=== PATIENT | female | born 1980 | race Caucasian/White ===

== ENCOUNTER 2016-09-30 14:27 | Emergency (ER) | payer OTHER ==
--- NOTE | 2016-09-30 14:54 | ED NURSING NOTES ---
Clinical Report - Nurses [facility] [address] [place] [address] 09/30/2016 14:28 Patient: ANNETTA PLASENCIA TRIAGE Triage time 14:42. Acuity: LEVEL 4. Chief Complaint: TOOTHACHE. Alert. No acute distress. DANIELLE COMA SCORE: Danielle Coma Scale: 15- eyes open spontaneously (4); best verbal response- oriented x 4 (5); best motor response- obeys commands (6). --14:49 Jerica Ibarra R.N. 14:41 09/30/16. BP: 148/96. HR: 113. RR: 18. O2 saturation: 100%. Temp: 98.2 F (oral). Pain level now: 06/30. --14:49 Jerica Ibarra R.N. Weight: 88.4 kg stated. Height/Length: 64 inches Per Patient. BMI: 33.5. --14:44 Jerica Ibarra R.N. Medications Albuterol Sulfate Inhalation. Atorvastatin Calcium Oral (unknown dose). Cyclobenzaprine HCl Oral (unknown dose. ). Gabapentin Oral (unknown dose). Insulin Pump. Paxil Oral. Sulcrafate. --14:42 Jerica Ibarra R.N. Medication/allergy information source: other. --14:49 Jerica Ibarra R.N. Allergies Eggs or Egg-derived Products. NSAIDs. (no reaction -- pt is worried about stomach ulcers with hx of colitis and gastroparesis. ) --14:42 Jerica Ibarra R.N. History Arrived by private vehicle. Historian: patient. Unaccompanied. Primary physician (Zulema). Onset. (2 days ago). She has a dental appointment scheduled (10/09). PAST MEDICAL HX: Last normal menstrual period- has neuva ring. SOCIAL HX: Heavy tobacco smoker- less than 1 pack per day. Occasional alcohol use. History of drug use: marijuana. FALL RISK ASSESSMENT: Fall risk assessment completed. No fall risk identified. FUNCTIONAL ASSESSMENT: Functional assessment: no impairments noted. LEARNING NEEDS ASSESSMENT: The learning needs assessment revealed no barriers. --14:49 Jerica Ibarra R.N. PROBLEMS: Dental Pain. Neuropathy. Gastroparesis. Sprain. Diabetes Mellitus. Asthma. PTSD. Hypoglycemia. Syncope. Cervical Strain. Back Pain. Ovarian Cyst. Pelvic Pain. Chronic Back Pain. Vomiting. UTI - Urinary Tract Infection. Abdominal Pain. Diarrhea. Depression. Colitis. Fall. Contusion. Sinusitis. Neck Pain. Headache. Panic Attack. Diabetes Mellitus. Immunizations. LNMP - Last Normal Menstrual Period. --14:44 Jerica Ibarra R.N. ADDITIONAL SURGERIES: Adenoidectomy. Lap band. Laparoscopy. Tonsillectomy. Tympanostomy Tubes. --14:44 Jerica Ibarra R.N. Assessment GENERAL / NEURO / PSYCH: Alert. Oriented X 4. Appears in no acute distress. Patient appears calm and cooperative. RESPIRATORY: Respirations not labored. SKIN: Skin is warm and dry. --14:49 Jerica Ibarra R.N. Interventions ID and allergy band on patient. To treatment room. --14:49 Jerica Ibarra R.N. PHYSICAL ASSESSMENT 14:51 09/30/16. Ambulatory to room. GENERAL / NEURO / PSYCH: Alert. Oriented X 4. Appears in no acute distress. RESPIRATORY: Respirations not labored. SKIN: Skin is warm and dry. --14:51 Jerica Ibarra R.N. NURSING PROGRESS NOTES 14:51 09/30/16. Head of bed elevated. Call light placed in reach. Side rails up x 1. Bed placed in lowest position. Brakes of bed on. --14:51 Jerica Ibarra R.N. 14:59 09/30/2016 Amoxicillin PO 500 mg given. Allergies verified and confirmed 5 rights. --14:59 Emilie Elias R.N. ( Pt medicated by myself. First time meeting pt.). --15:02 Emilie Elias R.N. DISPOSITION / DISCHARGE Departure time: 15:03 Sep 30 2016. Condition at departure: stable. No learning barriers present. Reviewed medication(s). Patient verbalized understanding. Written instructions provided in [place]an. The patient was discharged by the physician diversional therapist's assistant. She was discharged home. She left the Emergency Department ambulatory and via private vehicle. Patient driving. --15:03 Emilie Elias R.N. Locked/Released at 09/30/2016 15:03 by Emilie Elias R.N.
--- NOTE | 2016-09-30 14:54 | ED CLINICAL REPORT ---
Clinical Report - Physicians/Mid Levels [facility] [address] [address] 09/30/2016 14:28 Patient: ANNETTA PLASENCIA Time Seen: 14:57 Sep 30 2016. Arrived- By private vehicle. Historian- patient. HISTORY OF PRESENT ILLNESS Chief Complaint: DENTAL PAIN. This started yesterday and is still present. The patient has had toothache. (Type I diabetic, who reports dental pain over the last 2 days, chipped her tooth upper left 2 days previously, pain started 12-24 hours thereafter. Reports no facial swelling, fevers 101 this am, took tylenol). Recent medical care: The patient was seen recently by a health care provider. REVIEW OF SYSTEMS No fever, cough, difficulty breathing, nausea or abdominal pain. No difficulty with urination, headache or skin rash. All systems otherwise negative, except as recorded above. PAST HISTORY Problems: Neuropathy. Gastroparesis. Sprain. Diabetes Mellitus. Asthma. PTSD. Hypoglycemia. Syncope. Cervical Strain. Back Pain. Ovarian Cyst. Pelvic Pain. Chronic Back Pain. Vomiting. UTI - Urinary Tract Infection. Abdominal Pain. Diarrhea. Anxiety Reaction. Depression. Colitis. Fall. Contusion. Sinusitis. Neck Pain. Headache. Panic Attack. Diabetes Mellitus. Immunizations. LNMP - Last Normal Menstrual Period. Additional Surgeries: Adenoidectomy. Lap band. Laparoscopy. Tonsillectomy. Tympanostomy Tubes. Medications: Albuterol Sulfate Inhalation. Atorvastatin Calcium Oral (unknown dose). Cyclobenzaprine HCl Oral (unknown dose. ). Gabapentin Oral (unknown dose). Insulin Pump. Paxil Oral. Sulcrafate. Allergies: Eggs or Egg-derived Products. NSAIDs. (no reaction -- pt is worried about stomach ulcers with hx of colitis and gastroparesis. ). ADDITIONAL NOTES The nursing notes have been reviewed. PHYSICAL EXAM Vital Signs: 09/30/2016 14:41 BP: 148/96. HR: 113. RR: 18. O2 saturation: 100%. Temp: 98.2 F. Pain level now: 06/30. Appearance: Alert. Head: Normal external inspection. ENT: Dental tenderness (upper left first premolar) (left upper premolar). Nose normal. Pharynx normal. Lips normal. Gums normal. No trismus present. Uvula midline. No tonsillar exudate, peritonsillar mass, trismus or purulent nasal discharge. Neck: Trachea midline. No adenopathy. CVS: Normal heart rate and rhythm. Heart sounds normal. Respiratory: No respiratory distress. Breath sounds normal. Abdomen: Soft. Skin: Normal skin color. No rash. 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 uvula midline, no signs of ludwigs angina. pt stable. To f/u outpatient. no facial swelling. Patient is stable. Patient/family counseled. Disposition: Discharged. CLINICAL IMPRESSION Moderate dental pain. Type 1 diabetes. INSTRUCTIONS Drink plenty of fluids. Prescription Medications: Hydrocodone/APAP 5mg / 325mg: take 1 orally every 6 hours as needed for pain. Dispense twelve (12). No refill. Amoxicillin 500 mg capsules: take 1 orally every 8 hours for 10 days. No refills. Follow-up: Follow up with a specialist as scheduled. (Electronically signed by Camille Waller P.A.-C 09/30/2016 15:51)
--- NOTE | 2016-09-30 14:54 | ED ORDER SUMMARY ---
..... Patient: ANNETTA PLASENCIA OrderSheet [facility] VisitID: [id number] [address] [place] [address] 35y, F Registration Date/Time: 09/30/2016 ORDER SHEET Weight: 88.4 kg (stated) Allergies: Eggs or Egg-derived Products, NSAIDs GENERAL ORDERS: MEDICATION ORDERS: Amoxicillin PO 500 mg (NOW) (14:52 09/30/2016 Alban P.A.-C) (Ack 14:57 Eliecere R.N.) (14:59 Eliecere R.N.) IV FLUIDS: ORDER SHEET NOTES: [Electronically signed by Emilie Elias R.N. (15:03 09/30/2016)] [Electronically signed by Camille Waller-Gretchen (15:51 09/30/2016)] [Electronically locked/signed by Emilie Elias R.N. (15:03 09/30/2016)]
--- NOTE | 2016-09-30 14:54 | ED CLINICAL REPORT ---
Clinical Report - Physicians/Mid Levels [facility] [address] [address] 09/30/2016 14:28 Patient: ANNETTA PLASENCIA Time Seen: 14:57 Sep 30 2016. Arrived- By private vehicle. Historian- patient. HISTORY OF PRESENT ILLNESS Chief Complaint: DENTAL PAIN. This started yesterday and is still present. The patient has had toothache. (Type I diabetic, who reports dental pain over the last 2 days, chipped her tooth upper left 2 days previously, pain started 12-24 hours thereafter. Reports no facial swelling, fevers 101 this am, took tylenol). Recent medical care: The patient was seen recently by a health care provider. REVIEW OF SYSTEMS No fever, cough, difficulty breathing, nausea or abdominal pain. No difficulty with urination, headache or skin rash. All systems otherwise negative, except as recorded above. PAST HISTORY Problems: Neuropathy. Gastroparesis. Sprain. Diabetes Mellitus. Asthma. PTSD. Hypoglycemia. Syncope. Cervical Strain. Back Pain. Ovarian Cyst. Pelvic Pain. Chronic Back Pain. Vomiting. UTI - Urinary Tract Infection. Abdominal Pain. Diarrhea. Anxiety Reaction. Depression. Colitis. Fall. Contusion. Sinusitis. Neck Pain. Headache. Panic Attack. Diabetes Mellitus. Immunizations. LNMP - Last Normal Menstrual Period. Additional Surgeries: Adenoidectomy. Lap band. Laparoscopy. Tonsillectomy. Tympanostomy Tubes. Medications: Albuterol Sulfate Inhalation. Atorvastatin Calcium Oral (unknown dose). Cyclobenzaprine HCl Oral (unknown dose. ). Gabapentin Oral (unknown dose). Insulin Pump. Paxil Oral. Sulcrafate. Allergies: Eggs or Egg-derived Products. NSAIDs. (no reaction -- pt is worried about stomach ulcers with hx of colitis and gastroparesis. ). ADDITIONAL NOTES The nursing notes have been reviewed. PHYSICAL EXAM Vital Signs: 09/30/2016 14:41 BP: 148/96. HR: 113. RR: 18. O2 saturation: 100%. Temp: 98.2 F. Pain level now: 06/30. Appearance: Alert. Head: Normal external inspection. ENT: Dental tenderness (upper left first premolar) (left upper premolar). Nose normal. Pharynx normal. Lips normal. Gums normal. No trismus present. Uvula midline. No tonsillar exudate, peritonsillar mass, trismus or purulent nasal discharge. Neck: Trachea midline. No adenopathy. CVS: Normal heart rate and rhythm. Heart sounds normal. Respiratory: No respiratory distress. Breath sounds normal. Abdomen: Soft. Skin: Normal skin color. No rash. 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 uvula midline, no signs of ludwigs angina. pt stable. To f/u outpatient. no facial swelling. Patient is stable. Patient/family counseled. Disposition: Discharged. CLINICAL IMPRESSION Moderate dental pain. Type 1 diabetes. INSTRUCTIONS Drink plenty of fluids. Prescription Medications: Hydrocodone/APAP 5mg / 325mg: take 1 orally every 6 hours as needed for pain. Dispense twelve (12). No refill. Amoxicillin 500 mg capsules: take 1 orally every 8 hours for 10 days. No refills. Follow-up: Follow up with a specialist as scheduled. (Electronically signed by Camille Waller P.A.-C 09/30/2016 15:51)
--- NOTE | 2016-09-30 14:54 | ED ORDER SUMMARY ---
..... Patient: ANNETTA PLASENCIA OrderSheet [facility] VisitID: [id number] [address] [place] [address] 35y, F Registration Date/Time: 09/30/2016 ORDER SHEET Weight: 88.4 kg (stated) Allergies: Eggs or Egg-derived Products, NSAIDs GENERAL ORDERS: MEDICATION ORDERS: Amoxicillin PO 500 mg (NOW) (14:52 09/30/2016 Alban P.A.-C) (Ack 14:57 Eliecere R.N.) (14:59 Eliecere R.N.) IV FLUIDS: ORDER SHEET NOTES: [Electronically signed by Emilie Elias R.N. (15:03 09/30/2016)] [Electronically signed by Camille Waller-Gretchen (15:51 09/30/2016)] [Electronically locked/signed by Emilie Elias R.N. (15:03 09/30/2016)]
--- NOTE | 2016-09-30 14:54 | ED NURSING NOTES ---
Clinical Report - Nurses [facility] [address] [place] [address] 09/30/2016 14:28 Patient: ANNETTA PLASENCIA TRIAGE Triage time 14:42. Acuity: LEVEL 4. Chief Complaint: TOOTHACHE. Alert. No acute distress. DANIELLE COMA SCORE: Danielle Coma Scale: 15- eyes open spontaneously (4); best verbal response- oriented x 4 (5); best motor response- obeys commands (6). --14:49 Jerica Ibarra R.N. 14:41 09/30/16. BP: 148/96. HR: 113. RR: 18. O2 saturation: 100%. Temp: 98.2 F (oral). Pain level now: 06/30. --14:49 Jerica Ibarra R.N. Weight: 88.4 kg stated. Height/Length: 64 inches Per Patient. BMI: 33.5. --14:44 Jerica Ibarra R.N. Medications Albuterol Sulfate Inhalation. Atorvastatin Calcium Oral (unknown dose). Cyclobenzaprine HCl Oral (unknown dose. ). Gabapentin Oral (unknown dose). Insulin Pump. Paxil Oral. Sulcrafate. --14:42 Jerica Ibarra R.N. Medication/allergy information source: other. --14:49 Jerica Ibarra R.N. Allergies Eggs or Egg-derived Products. NSAIDs. (no reaction -- pt is worried about stomach ulcers with hx of colitis and gastroparesis. ) --14:42 Jerica Ibarra R.N. History Arrived by private vehicle. Historian: patient. Unaccompanied. Primary physician (Zulema). Onset. (2 days ago). She has a dental appointment scheduled (10/09). PAST MEDICAL HX: Last normal menstrual period- has neuva ring. SOCIAL HX: Heavy tobacco smoker- less than 1 pack per day. Occasional alcohol use. History of drug use: marijuana. FALL RISK ASSESSMENT: Fall risk assessment completed. No fall risk identified. FUNCTIONAL ASSESSMENT: Functional assessment: no impairments noted. LEARNING NEEDS ASSESSMENT: The learning needs assessment revealed no barriers. --14:49 Jerica Ibarra R.N. PROBLEMS: Dental Pain. Neuropathy. Gastroparesis. Sprain. Diabetes Mellitus. Asthma. PTSD. Hypoglycemia. Syncope. Cervical Strain. Back Pain. Ovarian Cyst. Pelvic Pain. Chronic Back Pain. Vomiting. UTI - Urinary Tract Infection. Abdominal Pain. Diarrhea. Depression. Colitis. Fall. Contusion. Sinusitis. Neck Pain. Headache. Panic Attack. Diabetes Mellitus. Immunizations. LNMP - Last Normal Menstrual Period. --14:44 Jerica Ibrara R.N. ADDITIONAL SURGERIES: Adenoidectomy. Lap band. Laparoscopy. Tonsillectomy. Tympanostomy Tubes. --14:44 Jerica Ibarra R.N. Assessment GENERAL / NEURO / PSYCH: Alert. Oriented X 4. Appears in no acute distress. Patient appears calm and cooperative. RESPIRATORY: Respirations not labored. SKIN: Skin is warm and dry. --14:49 Jerica Ibarra R.N. Interventions ID and allergy band on patient. To treatment room. --14:49 Jerica Ibarra R.N. PHYSICAL ASSESSMENT 14:51 09/30/16. Ambulatory to room. GENERAL / NEURO / PSYCH: Alert. Oriented X 4. Appears in no acute distress. RESPIRATORY: Respirations not labored. SKIN: Skin is warm and dry. --14:51 Jerica Ibarra R.N. NURSING PROGRESS NOTES 14:51 09/30/16. Head of bed elevated. Call light placed in reach. Side rails up x 1. Bed placed in lowest position. Brakes of bed on. --14:51 Jerica Ibarra R.N. 14:59 09/30/2016 Amoxicillin PO 500 mg given. Allergies verified and confirmed 5 rights. --14:59 Emilie Elias R.N. ( Pt medicated by myself. First time meeting pt.). --15:02 Emilie Elias R.N. DISPOSITION / DISCHARGE Departure time: 15:03 Sep 30 2016. Condition at departure: stable. No learning barriers present. Reviewed medication(s). Patient verbalized understanding. Written instructions provided in Gabonese. The patient was discharged by the physician sugar laboratory assistant. She was discharged home. She left the Emergency Department ambulatory and via private vehicle. Patient driving. --15:03 Emilie Elias R.N. Locked/Released at 09/30/2016 15:03 by Emilie Elias R.N.
--- NOTE | 2016-09-30 15:52 | ED MAR SUMMARY ---
..... Medication Administration Record [facility] [address] [place] [address] Patient: ANNETTA PLASENCIA Visit ID: [id number] 35y, F Weight: 88.4 kg Height/Length: 64 in BMI: 33.5 ALLERGIES: Eggs or Egg-derived Products, NSAIDs Given 14:59 09/30/2016 Emilie Elias R.N. Medication Administered: AMOXICILLIN [PO], Dose: 500 mg PO. Medication Ordered: Amoxicillin PO 500 mg (NOW).
--- NOTE | 2016-09-30 15:52 | ED DISCHARGE INSTRUCTIONS ---
Patient: ANNETTA PLASENCIA General Instructions [facility] VisitID: [id number] [place] [address] 35y, F Registration Date/Time: 09/30/2016 Moderate dental pain. Type 1 diabetes. INSTRUCTIONS Drink plenty of fluids. Prescription Medications: Hydrocodone/APAP 5mg / 325mg: take 1 orally every 6 hours as needed for pain. Dispense twelve (12). No refill. Amoxicillin 500 mg capsules: take 1 orally every 8 hours for 10 days. No refills. Follow-up: Follow up with a specialist as scheduled. ADDITIONAL INFORMATION Hydrocodone Bitartrate, Acetaminophen Oral tablet What is this medicine? ACETAMINOPHEN; HYDROCODONE (a set a RADHA figueroa fen; elba droe KOE done) is a pain reliever. It is used to treat mild to moderate pain. How should I use this medicine? Take this medicine by mouth. Swallow it with a full glass of water. Follow the directions on the prescription label. If the medicine upsets your stomach, take the medicine with food or milk. Do not take more than you are told to take. Talk to your brick stacker regarding the use of this medicine in children. This medicine is not approved for use in children. What side effects may I notice from receiving this medicine? Side effects that you should report to your doctor or health post acute care registered nurse as soon as possible: allergic reactions like skin rash, itching or hives, swelling of the face, lips, or tongue breathing problems confusion feeling faint or lightheaded, falls stomach pain yellowing of the eyes or skin Side effects that usually do not require medical attention (report to your doctor or health post acute care registered nurse if they continue or are bothersome): nausea, vomiting stomach upset What may interact with this medicine? alcohol antihistamines isoniazid medicines for depression, anxiety, or psychotic disturbances medicines for sleep muscle relaxants naltrexone narcotic medicines (opiates) for pain phenobarbital ritonavir tramadol What if I miss a dose? If you miss a dose, take it as soon as you can. If it is almost time for your next dose, take only that dose. Do not take double or extra doses. Where should I keep my medicine? Keep out of the reach of children. This medicine can be abused. Keep your medicine in a safe place to protect it from theft. Do not share this medicine with anyone. Selling or giving away this medicine is dangerous and against the law. Store at room temperature between 15 and 30 degrees C (59 and 86 degrees F). Protect from light. Keep container tightly closed. Throw away any unused medicine after the expiration date. Discard unused medicine and used packaging carefully. Pets and children can be harmed if they find used or lost packages. What should I tell my health care provider before I take this medicine? They need to know if you have any of these conditions: brain tumor Crohn's disease, inflammatory bowel disease, or ulcerative colitis drink more than 3 alcohol-containing drinks per day drug abuse or addiction head injury heart or circulation problems kidney disease or problems going to the bathroom liver disease lung disease, asthma, or breathing problems an unusual or allergic reaction to acetaminophen, hydrocodone, other opioid analgesics, other medicines, foods, dyes, or preservatives or trying to get breast-feeding What should I watch for while using this medicine? Tell your doctor or health post acute care registered nurse if your pain does not go away, if it gets worse, or if you have new or a different type of pain. You may develop tolerance to the medicine. Tolerance means that you will need a higher dose of the medicine for pain relief. Tolerance is normal and is expected if you take the medicine for a long time. Do not suddenly stop taking your medicine because you may develop a severe reaction. Your body becomes used to the medicine. This does NOT mean you are addicted. Addiction is a behavior related to getting and using a drug for a non-medical reason. If you have pain, you have a medical reason to take pain medicine. Your doctor will tell you how much medicine to take. If your doctor wants you to stop the medicine, the dose will be slowly lowered over time to avoid any side effects. You may get drowsy or dizzy when you first start taking the medicine or change doses. Do not drive, use machinery, or do anything that may be dangerous until you know how the medicine affects you. Stand or sit up slowly. There are different types of narcotic medicines (opiates) for pain. If you take more than one type at the same time, you may have more side effects. Give your health care provider a list of all medicines you use. Your doctor will tell you how much medicine to take. Do not take more medicine than directed. Call emergency for help if you have problems breathing. The medicine will cause constipation. Try to have a bowel movement at least every 2 to 3 days. If you do not have a bowel movement for 3 days, call your doctor or health post acute care registered nurse. Too much acetaminophen can be very dangerous. Do not take Tylenol (acetaminophen) or medicines that contain acetaminophen with this medicine. Many non-prescription medicines contain acetaminophen. Always read the labels carefully. Amoxicillin Trihydrate Oral tablet What is this medicine? AMOXICILLIN (a mox i JEFF in) is a penicillin antibiotic. It is used to treat certain kinds of bacterial infections. It will not work for colds, flu, or other viral infections. How should I use this medicine? Take this medicine by mouth with a glass of water. Follow the directions on your prescription label. You may take this medicine with food or on an empty stomach. Take your medicine at regular intervals. Do not take your medicine more often than directed. Take all of your medicine as directed even if you think your are better. Do not skip doses or stop your medicine early. Talk to your brick stacker regarding the use of this medicine in children. While this drug may be prescribed for selected conditions, precautions do apply. What side effects may I notice from receiving this medicine? Side effects that you should report to your doctor or health post acute care registered nurse as soon as possible: allergic reactions like skin rash, itching or hives, swelling of the face, lips, or tongue breathing problems dark urine redness, blistering, peeling or loosening of the skin, including inside the mouth seizures severe or watery diarrhea trouble passing urine or change in the amount of urine unusual bleeding or bruising unusually weak or tired yellowing of the eyes or skin Side effects that usually do not require medical attention (report to your doctor or health post acute care registered nurse if they continue or are bothersome): dizziness headache stomach upset trouble sleeping What may interact with this medicine? amiloride control pills chloramphenicol macrolides probenecid sulfonamides tetracyclines What if I miss a dose? If you miss a dose, take it as soon as you can. If it is almost time for your next dose, take only that dose. Do not take double or extra doses. Where should I keep my medicine? Keep out of the reach of children. Store between 68 and 77 degrees F (20 and 25 degrees C). Keep bottle closed tightly. Throw away any unused medicine after the expiration date. What should I tell my health care provider before I take this medicine? They need to know if you have any of these conditions: asthma kidney disease an unusual or allergic reaction to amoxicillin, other penicillins, cephalosporin antibiotics, other medicines, foods, dyes, or preservatives or trying to get breast-feeding What should I watch for while using this medicine? Tell your doctor or health post acute care registered nurse if your symptoms do not improve in 2 or 3 days. Take all of the doses of your medicine as directed. Do not skip doses or stop your medicine early. If you are diabetic, you may get a false positive result for sugar in your urine with certain brands of urine tests. Check with your doctor. Do not treat diarrhea with [id number] products. Contact your doctor if you have diarrhea that lasts more than 2 days or if the diarrhea is severe and watery. You have been given the following additional information: Hydrocodone Bitartrate, Acetaminophen Oral tablet Amoxicillin Trihydrate Oral tablet (Electronically signed by Camille Waller P.A.-C 09/30/2016 15:51)
--- NOTE | 2016-09-30 15:52 | ED DISCHARGE INSTRUCTIONS ---
Patient: ANNETTA PLASENCIA General Instructions [facility] VisitID: [id number] [place] [address] 35y, F Registration Date/Time: 09/30/2016 Moderate dental pain. Type 1 diabetes. INSTRUCTIONS Drink plenty of fluids. Prescription Medications: Hydrocodone/APAP 5mg / 325mg: take 1 orally every 6 hours as needed for pain. Dispense twelve (12). No refill. Amoxicillin 500 mg capsules: take 1 orally every 8 hours for 10 days. No refills. Follow-up: Follow up with a specialist as scheduled. ADDITIONAL INFORMATION Hydrocodone Bitartrate, Acetaminophen Oral tablet What is this medicine? ACETAMINOPHEN; HYDROCODONE (a set a RADHA figueroa fen; elba droe KOE done) is a pain reliever. It is used to treat mild to moderate pain. How should I use this medicine? Take this medicine by mouth. Swallow it with a full glass of water. Follow the directions on the prescription label. If the medicine upsets your stomach, take the medicine with food or milk. Do not take more than you are told to take. Talk to your mamma logist regarding the use of this medicine in children. This medicine is not approved for use in children. What side effects may I notice from receiving this medicine? Side effects that you should report to your doctor or health primary care nurse as soon as possible: allergic reactions like skin rash, itching or hives, swelling of the face, lips, or tongue breathing problems confusion feeling faint or lightheaded, falls stomach pain yellowing of the eyes or skin Side effects that usually do not require medical attention (report to your doctor or health primary care nurse if they continue or are bothersome): nausea, vomiting stomach upset What may interact with this medicine? alcohol antihistamines isoniazid medicines for depression, anxiety, or psychotic disturbances medicines for sleep muscle relaxants naltrexone narcotic medicines (opiates) for pain phenobarbital ritonavir tramadol What if I miss a dose? If you miss a dose, take it as soon as you can. If it is almost time for your next dose, take only that dose. Do not take double or extra doses. Where should I keep my medicine? Keep out of the reach of children. This medicine can be abused. Keep your medicine in a safe place to protect it from theft. Do not share this medicine with anyone. Selling or giving away this medicine is dangerous and against the law. Store at room temperature between 15 and 30 degrees C (59 and 86 degrees F). Protect from light. Keep container tightly closed. Throw away any unused medicine after the expiration date. Discard unused medicine and used packaging carefully. Pets and children can be harmed if they find used or lost packages. What should I tell my health care provider before I take this medicine? They need to know if you have any of these conditions: brain tumor Crohn's disease, inflammatory bowel disease, or ulcerative colitis drink more than 3 alcohol-containing drinks per day drug abuse or addiction head injury heart or circulation problems kidney disease or problems going to the bathroom liver disease lung disease, asthma, or breathing problems an unusual or allergic reaction to acetaminophen, hydrocodone, other opioid analgesics, other medicines, foods, dyes, or preservatives or trying to get breast-feeding What should I watch for while using this medicine? Tell your doctor or health primary care nurse if your pain does not go away, if it gets worse, or if you have new or a different type of pain. You may develop tolerance to the medicine. Tolerance means that you will need a higher dose of the medicine for pain relief. Tolerance is normal and is expected if you take the medicine for a long time. Do not suddenly stop taking your medicine because you may develop a severe reaction. Your body becomes used to the medicine. This does NOT mean you are addicted. Addiction is a behavior related to getting and using a drug for a non-medical reason. If you have pain, you have a medical reason to take pain medicine. Your doctor will tell you how much medicine to take. If your doctor wants you to stop the medicine, the dose will be slowly lowered over time to avoid any side effects. You may get drowsy or dizzy when you first start taking the medicine or change doses. Do not drive, use machinery, or do anything that may be dangerous until you know how the medicine affects you. Stand or sit up slowly. There are different types of narcotic medicines (opiates) for pain. If you take more than one type at the same time, you may have more side effects. Give your health care provider a list of all medicines you use. Your doctor will tell you how much medicine to take. Do not take more medicine than directed. Call emergency for help if you have problems breathing. The medicine will cause constipation. Try to have a bowel movement at least every 2 to 3 days. If you do not have a bowel movement for 3 days, call your doctor or health primary care nurse. Too much acetaminophen can be very dangerous. Do not take Tylenol (acetaminophen) or medicines that contain acetaminophen with this medicine. Many non-prescription medicines contain acetaminophen. Always read the labels carefully. Amoxicillin Trihydrate Oral tablet What is this medicine? AMOXICILLIN (a mox i JEFF in) is a penicillin antibiotic. It is used to treat certain kinds of bacterial infections. It will not work for colds, flu, or other viral infections. How should I use this medicine? Take this medicine by mouth with a glass of water. Follow the directions on your prescription label. You may take this medicine with food or on an empty stomach. Take your medicine at regular intervals. Do not take your medicine more often than directed. Take all of your medicine as directed even if you think your are better. Do not skip doses or stop your medicine early. Talk to your mamma logist regarding the use of this medicine in children. While this drug may be prescribed for selected conditions, precautions do apply. What side effects may I notice from receiving this medicine? Side effects that you should report to your doctor or health primary care nurse as soon as possible: allergic reactions like skin rash, itching or hives, swelling of the face, lips, or tongue breathing problems dark urine redness, blistering, peeling or loosening of the skin, including inside the mouth seizures severe or watery diarrhea trouble passing urine or change in the amount of urine unusual bleeding or bruising unusually weak or tired yellowing of the eyes or skin Side effects that usually do not require medical attention (report to your doctor or health primary care nurse if they continue or are bothersome): dizziness headache stomach upset trouble sleeping What may interact with this medicine? amiloride control pills chloramphenicol macrolides probenecid sulfonamides tetracyclines What if I miss a dose? If you miss a dose, take it as soon as you can. If it is almost time for your next dose, take only that dose. Do not take double or extra doses. Where should I keep my medicine? Keep out of the reach of children. Store between 68 and 77 degrees F (20 and 25 degrees C). Keep bottle closed tightly. Throw away any unused medicine after the expiration date. What should I tell my health care provider before I take this medicine? They need to know if you have any of these conditions: asthma kidney disease an unusual or allergic reaction to amoxicillin, other penicillins, cephalosporin antibiotics, other medicines, foods, dyes, or preservatives or trying to get breast-feeding What should I watch for while using this medicine? Tell your doctor or health primary care nurse if your symptoms do not improve in 2 or 3 days. Take all of the doses of your medicine as directed. Do not skip doses or stop your medicine early. If you are diabetic, you may get a false positive result for sugar in your urine with certain brands of urine tests. Check with your doctor. Do not treat diarrhea with [id number] products. Contact your doctor if you have diarrhea that lasts more than 2 days or if the diarrhea is severe and watery. You have been given the following additional information: Hydrocodone Bitartrate, Acetaminophen Oral tablet Amoxicillin Trihydrate Oral tablet (Electronically signed by Camille Waller P.A.-C 09/30/2016 15:51)
--- NOTE | 2016-09-30 15:52 | ED MED RECONCILIATION SUMMARY ---
Patient: ANNETTA PLASENCIA Rose Marie Medication Reconciliation Report [facility] VisitID: [id number] [address] [place] [address] 35y, F Registration Date/Time: 09/30/2016 Weight: 88.4 kg Height/Length: 64 in. BMI: 33.5 ALLERGIES: Eggs or Egg-derived Products, NSAIDs The patient's Home Medications are listed below: THE FOLLOWING MEDICATIONS NEED TO BE RECONCILED: Albuterol Sulfate Inhalation Atorvastatin Calcium Oral, unknown dose Cyclobenzaprine HCl Oral, unknown dose. Gabapentin Oral, unknown dose Insulin Pump Paxil Oral Sulcrafate The source(s) of the original Home Medication information: other The following Medications were given to the patient in the Emergency Department: Amoxicillin [PO] PO 500 mg, administered: 09/30/2016 2:59:00 PM The following Medications were prescribed to the patient: Hydrocodone/APAP 5mg / 325mg: take 1 orally every 6 hours as needed for pain. Dispense twelve (12). No refill. -- Camille Waller, P.A.-Gretchen Amoxicillin 500 mg capsules: take 1 orally every 8 hours for 10 days. No refills. -- Camille Waller, P.A.-C
--- NOTE | 2016-09-30 15:52 | ED MAR SUMMARY ---
..... Medication Administration Record [facility] [address] [place] [address] Patient: ANNETTA PLASENCIA Visit ID: [id number] 35y, F Weight: 88.4 kg Height/Length: 64 in BMI: 33.5 ALLERGIES: Eggs or Egg-derived Products, NSAIDs Given 14:59 09/30/2016 Emilie Elias R.N. Medication Administered: AMOXICILLIN [PO], Dose: 500 mg PO. Medication Ordered: Amoxicillin PO 500 mg (NOW).
--- NOTE | 2016-09-30 15:52 | ED MED RECONCILIATION SUMMARY ---
Patient: ANNETTA PLASENCIA Rose Marie Medication Reconciliation Report [facility] VisitID: [id number] [address] [place] [address] 35y, F Registration Date/Time: 09/30/2016 Weight: 88.4 kg Height/Length: 64 in. BMI: 33.5 ALLERGIES: Eggs or Egg-derived Products, NSAIDs The patient's Home Medications are listed below: THE FOLLOWING MEDICATIONS NEED TO BE RECONCILED: Albuterol Sulfate Inhalation Atorvastatin Calcium Oral, unknown dose Cyclobenzaprine HCl Oral, unknown dose. Gabapentin Oral, unknown dose Insulin Pump Paxil Oral Sulcrafate The source(s) of the original Home Medication information: other The following Medications were given to the patient in the Emergency Department: Amoxicillin [PO] PO 500 mg, administered: 09/30/2016 2:59:00 PM The following Medications were prescribed to the patient: Hydrocodone/APAP 5mg / 325mg: take 1 orally every 6 hours as needed for pain. Dispense twelve (12). No refill. -- Camille Waller, P.A.-Gretchen Amoxicillin 500 mg capsules: take 1 orally every 8 hours for 10 days. No refills. -- Camille Waller, P.A.-C
== END 2016-09-30 15:03 | disposition home or self-care (01) ==
LOC: ED SRH 14:27
DX: K08.89 Other specified disorders of teeth and supporting structures (principal); E10.9 Type 1 diabetes mellitus without complications; Z91.012 Allergy to eggs; Z88.8 Allergy status to other drugs, medicaments and biological substances

== ENCOUNTER 2016-12-16 08:13 | Emergency (ER) | payer OTHER ==
--- NOTE | 2016-12-16 09:08 | ED NURSING NOTES ---
Clinical Report - Nurses [facility] [address] [place] [address] 12/16/2016 8:14 Patient: ANNETTA PLASENCIA TRIAGE Triage time 08:19. Acuity: LEVEL 4. Chief Complaint: RIGHT UPPER TOOTHACHE. 08:19 12/16/16. 08:12/16/16. Alert. No acute distress. SEPSIS SCREEN: Sepsis Screen. Negative (no infection suspected/documented). --08:23 Davy Aponte R.N. 08:19 12/16/16. BP: 147/89. HR: 109. RR: 18. O2 saturation: 99% on room air. Temp: 98.4 F (oral). Pain level now: 06/30. --08:23 Davy Aponte R.N. Weight: 95.2 kg stated. Height/Length: 64 inches Per Patient. BMI: 36.1. --08:19 Davy Aponte R.N. Medications Albuterol Sulfate Inhalation. Cyclobenzaprine HCl Oral (unknown dose. ). Gabapentin Oral (unknown dose). Insulin Pump. Paxil Oral. Sulcrafate. --08:20 Davy Aponte R.N. Medication/allergy information source: the patient. --08:23 Davy Aponte R.N. Allergies Eggs or Egg-derived Products. NSAIDs. (no reaction -- pt is worried about stomach ulcers with hx of colitis and gastroparesis. ) --08:20 Davy Aponte R.N. Influenza Vaccines. --08:22 Davy Aponte R.N. History Arrived by private vehicle. Historian: patient. Unaccompanied. 08:19 12/16/16. This started yesterday. She has a dental appointment scheduled (Next week). 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 PAST MEDICAL HX: Last normal menstrual period- "I have not had one for a while, I'm on the Nuva Ring". Immunizations not up to date. SOCIAL HX: Smoker- current status unknown (Quit Oct 27, 2016). History of heavy drug use: marijuana. (last used 2 days ago). No alcohol use. No infectious disease exposure. ABUSE ASSESSMENT: No report of abuse. FALL RISK ASSESSMENT: Fall risk assessment completed. No fall risk identified. NUTRITIONAL RISK ASSESSMENT: The nutritional risk assessment revealed no deficiencies. FUNCTIONAL ASSESSMENT: Functional assessment: no impairments noted. LEARNING NEEDS ASSESSMENT: The learning needs assessment revealed no barriers. SKIN INTEGRITY ASSESSMENT: Skin integrity risk assessment completed. No skin integrity risk identified. --08:23 Davy Aponte R.N. Assessment 08:12/16/16. --08:23 Davy Aponte R.N. Interventions 08:12/16/16. 08:12/16/16. ID and allergy band on patient. To treatment room. --08:23 Davy Aponte R.N. PHYSICAL ASSESSMENT 08:12/16/16. Ambulatory to room. GENERAL / NEURO / PSYCH: Alert. Oriented X 4. Appears in no acute distress. RESPIRATORY: Respirations not labored. [facility]: Capillary refill less than 2 seconds. SKIN: Skin is warm and dry. --08:23 Davy Aponte R.N. NURSING PROGRESS NOTES 08:12/16/16. The plan of care for this patient has been created. Head of bed elevated. Reassurance given. Two patient identifiers checked. Call light placed in reach. Side rails up x 2. Brakes of bed on. --08:23 Davy Aponte R.N. 08:12/16/16. Patient ready for evaluation- chart flagged and notification provided. --08:23 Davy Aponte R.N. 08:32 12/16/16. ( Gave pt dental referral sheet). --08:32 Davy Aponte R.N. DISPOSITION / DISCHARGE 09:13 12/16/16. Condition at departure: improved. The goals identified in the patient's plan of care were met. No learning barriers present. Discharge instructions provided and reviewed with the patient. Reviewed warnings. Reviewed medication(s). Treatments reviewed. Patient verbalized understanding. Written instructions provided in [place]. The patient was discharged by the physician. She was discharged home and unaccompanied at time of discharge. She left the Emergency Department ambulatory and via private vehicle. Patient driving. FALL RISK ASSESSMENT: Fall risk assessment completed. No fall risk identified. --09:13 Davy Aponte R.N. 09:13 12/16/16. BP: 132/78. HR: 79. RR: 14. O2 saturation: 99% on room air. Temp: 98.1 F (oral). --09:13 Davy Aponte R.N. 09:13 12/16/16. Departure time: :13. --09:13 Davy Aponte R.N. Locked/Released at 12/16/2016 9:18 by Davy Aponte R.N.
--- NOTE | 2016-12-16 09:08 | ED NURSING NOTES ---
Clinical Report - Nurses [facility] [address] [place] [address] 12/16/2016 8:14 Patient: ANNETTA PLASENCIA TRIAGE Triage time 08:19. Acuity: LEVEL 4. Chief Complaint: RIGHT UPPER TOOTHACHE. 08:19 12/16/16. 08:12/16/16. Alert. No acute distress. SEPSIS SCREEN: Sepsis Screen. Negative (no infection suspected/documented). --08:23 Davy Aponte R.N. 08:19 12/16/16. BP: 147/89. HR: 109. RR: 18. O2 saturation: 99% on room air. Temp: 98.4 F (oral). Pain level now: 06/30. --08:23 Davy Aponte R.N. Weight: 95.2 kg stated. Height/Length: 64 inches Per Patient. BMI: 36.1. --08:19 Davy Aponte R.N. Medications Albuterol Sulfate Inhalation. Cyclobenzaprine HCl Oral (unknown dose. ). Gabapentin Oral (unknown dose). Insulin Pump. Paxil Oral. Sulcrafate. --08:20 Davy Aponte R.N. Medication/allergy information source: the patient. --08:23 Davy Aponte R.N. Allergies Eggs or Egg-derived Products. NSAIDs. (no reaction -- pt is worried about stomach ulcers with hx of colitis and gastroparesis. ) --08:20 Davy Aponte R.N. Influenza Vaccines. --08:22 Davy Aponte R.N. History Arrived by private vehicle. Historian: patient. Unaccompanied. 08:19 12/16/16. This started yesterday. She has a dental appointment scheduled (Next week). Treatment [employer]: None. PAST MEDICAL HX: Last normal menstrual period- "I have not had one for a while, I'm on the Nuva Ring". Immunizations not up to date. SOCIAL HX: Smoker- current status unknown (Quit Oct 27, 2016). History of heavy drug use: marijuana. (last used 2 days ago). No alcohol use. No infectious disease exposure. ABUSE ASSESSMENT: No report of abuse. FALL RISK ASSESSMENT: Fall risk assessment completed. No fall risk identified. NUTRITIONAL RISK ASSESSMENT: The nutritional risk assessment revealed no deficiencies. FUNCTIONAL ASSESSMENT: Functional assessment: no impairments noted. LEARNING NEEDS ASSESSMENT: The learning needs assessment revealed no barriers. SKIN INTEGRITY ASSESSMENT: Skin integrity risk assessment completed. No skin integrity risk identified. --08:23 Davy Aponte R.N. Assessment 08:12/16/16. --08:23 Davy Aponte R.N. Interventions 08:12/16/16. 08:12/16/16. ID and allergy band on patient. To treatment room. --08:23 Davy Aponte R.N. PHYSICAL ASSESSMENT 08:12/16/16. Ambulatory to room. GENERAL / NEURO / PSYCH: Alert. Oriented X 4. Appears in no acute distress. RESPIRATORY: Respirations not labored. CVS: Capillary refill less than 2 seconds. SKIN: Skin is warm and dry. --08:23 Davy Aponte R.N. NURSING PROGRESS NOTES 08:12/16/16. The plan of care for this patient has been created. Head of bed elevated. Reassurance given. Two patient identifiers checked. Call light placed in reach. Side rails up x 2. Brakes of bed on. --08:23 Davy Aponte R.N. 08:12/16/16. Patient ready for evaluation- chart flagged and notification provided. --08:23 Davy Aponte R.N. 08:32 12/16/16. ( Gave pt dental referral sheet). --08:32 Davy Aponte R.N. DISPOSITION / DISCHARGE 09:13 12/16/16. Condition at departure: improved. The goals identified in the patient's plan of care were met. No learning barriers present. Discharge instructions provided and reviewed with the patient. Reviewed warnings. Reviewed medication(s). Treatments reviewed. Patient verbalized understanding. Written instructions provided in Kazakh. The patient was discharged by the physician. She was discharged home and unaccompanied at time of discharge. She left the Emergency Department ambulatory and via private vehicle. Patient driving. FALL RISK ASSESSMENT: Fall risk assessment completed. No fall risk identified. --09:13 Davy Aponte R.N. 09:13 12/16/16. BP: 132/78. HR: 79. RR: 14. O2 saturation: 99% on room air. Temp: 98.1 F (oral). --09:13 Davy Aponte R.N. 09:13 12/16/16. Departure time: :13. --09:13 Davy Aponte R.N. Locked/Released at 12/16/2016 9:18 by Davy Aponte R.N.
--- NOTE | 2016-12-16 09:08 | ED CLINICAL REPORT ---
Clinical Report - Physicians/Mid Levels [facility] [address] [address] 12/16/2016 8:14 Patient: ANNETTA PLASENCIA Time Seen: 08:37. Arrived- By private vehicle. Historian- patient. HISTORY OF PRESENT ILLNESS Chief Complaint: DENTAL PAIN. This started several days ago and is still present. It was gradual in onset and has been constant. Pain described as severe. The patient has had severe toothache involving a single tooth (right upper). She has had jaw pain. REVIEW OF SYSTEMS No chills, fever, sweats, calf pain or chest pain. No cough, difficulty breathing, pedal edema, palpitations or abdominal pain. No constipation, diarrhea, nausea, vomiting or urinary problems. All systems otherwise negative, except as recorded above. PAST HISTORY Problems: Dental Pain. Neuropathy. Gastroparesis. Sprain. Asthma. Hypoglycemia. Syncope. Cervical Strain. Back Pain. Ovarian Cyst. Pelvic Pain. Chronic Back Pain. Vomiting. UTI - Urinary Tract Infection. Abdominal Pain. Diarrhea. Anxiety Reaction. Depression. Colitis. Fall. Contusion. Sinusitis. Neck Pain. Headache. Diabetes Mellitus. LNMP - Last Normal Menstrual Period. Additional Surgeries: Adenoidectomy. Lap band. Laparoscopy. Tonsillectomy. Tympanostomy Tubes. Medications: Albuterol Sulfate Inhalation. Cyclobenzaprine HCl Oral (unknown dose. ). Gabapentin Oral (unknown dose). Insulin Pump. Paxil Oral. Sulcrafate. Allergies: Eggs or Egg-derived Products. Influenza Vaccines. NSAIDs. (no reaction -- pt is worried about stomach ulcers with hx of colitis and gastroparesis. ). SOCIAL HISTORY Smoker- current status unknown. History of heavy drug use: marijuana. No alcohol use. FAMILY HISTORY Denies family medical history. ADDITIONAL NOTES The nursing notes have been reviewed. PHYSICAL EXAM Vital Signs: 12/16/2016 08:19 BP: 147/89. HR: 109. RR: 18. O2 saturation: 99%. Temp: 98.4 F. Pain level now: 1010. Have been reviewed. Appearance: Alert. Eyes: Pupils equal, round and reactive to light. ENT: Ears normal. Nose normal. Moderate dental decay with gingival tenderness, induration and swelling. No gingival fluctuance. Right upper canine. Right upper premolar(s). Pharynx normal. No trismus present. Neck: Normal inspection. Trachea midline. Thyroid normal. Neck supple. CVS: Heart sounds normal. Respiratory: No respiratory distress. Breath sounds normal. Abdomen: Soft and nontender. No organomegaly. Skin: Normal skin color. No rash. Normal skin turgor. Extremities: Extremities exhibit normal ROM. PROGRESS AND PROCEDURES Course of Care: Patient is stable. Patient/family counseled. Old medical records reviewed. Disposition: Discharged. Condition: stable. CLINICAL IMPRESSION Dental pain. Dental caries. INSTRUCTIONS No driving or operating machinery while taking medication. Drink plenty of fluids. Warnings: Further evaluation is necessary. GENERAL WARNINGS: Return or contact your physician immediately if your condition worsens or changes unexpectedly, if not improving as expected, or if other problems arise. Your Current Medications: CONTINUE TAKING THE FOLLOWING MEDICATIONS: Albuterol Sulfate Inhalation. Cyclobenzaprine HCl Oral : unknown dose. Gabapentin Oral : unknown dose. Insulin Pump*. Paxil Oral. Sulcrafate*. Prescription Medications: Augmentin 875 mg: take 1 tablet orally every 12 hours for 7 days. Dispense fourteen (14). No refills. Substitution is permissible. Ultram 50 mg: take 1-2 orally every 6 hours as needed for pain. Dispense ten (10). No refills. Substitution is permissible. Follow-up: Follow up with a dentist. Call for the next available appointment. Understanding of the discharge instructions verbalized by patient. (Electronically signed by Joseph Jimenes MD 12/16/2016 9:12)
--- NOTE | 2016-12-16 09:19 | ED MAR SUMMARY ---
..... Medication Administration Record [facility] [address] [place], [place] [id number] Patient: ANNETTA PLASENCIA Visit ID: [id number] 35y, F Weight: 95.2 kg Height/Length: 64 in BMI: 36.1 ALLERGIES: Eggs or Egg-derived Products, NSAIDs, Influenza Vaccines
--- NOTE | 2016-12-16 09:19 | ED DISCHARGE INSTRUCTIONS ---
Patient: ANNETTA PLASENCIA General Instructions [facility] VisitID: [id number] [place] [address] 35y, F Registration Date/Time: 12/16/2016 Dental pain. Dental caries. INSTRUCTIONS No driving or operating machinery while taking medication. Drink plenty of fluids. Warnings: Further evaluation is necessary. GENERAL WARNINGS: Return or contact your physician immediately if your condition worsens or changes unexpectedly, if not improving as expected, or if other problems arise. Your Current Medications: CONTINUE TAKING THE FOLLOWING MEDICATIONS: Albuterol Sulfate Inhalation. Cyclobenzaprine HCl Oral : unknown dose. Gabapentin Oral : unknown dose. Insulin Pump*. Paxil Oral. Sulcrafate*. Prescription Medications: Augmentin 875 mg: take 1 tablet orally every 12 hours for 7 days. Dispense fourteen (14). No refills. Substitution is permissible. Ultram 50 mg: take 1-2 orally every 6 hours as needed for pain. Dispense ten (10). No refills. Substitution is permissible. Follow-up: Follow up with a dentist. Call for the next available appointment. Understanding of the discharge instructions verbalized by patient. ADDITIONAL INFORMATION Dental Cavity A dental cavity is a pit or crater in the enamel surface of the tooth. This exposes the sensitive inner layer of the tooth and causes pain. If untreated, the cavity will get bigger and may cause an infection or abscess in the root of the tooth. An infection in the tooth is a much more serious problem and may require a root canal or removal of the entire tooth. The tooth pain may be made worse by drinking hot or cold fluids. It may spread from the tooth to the ear or jaw on the same side. Home Care: Avoid hot and cold foods, and liquids since your tooth may be sensitive to temperature changes. If your tooth is chipped or cracked, or if there is a large open cavity, apply OIL OF CLOVES (available sukh-jrj-twjfzqh in drug stores) directly to the tooth to reduce pain. Some pharmacies carry an wdyc-hdr-yjphgpz "toothache kit." This contains oil of cloves and a paste, which can be applied over the exposed tooth to decrease sensitivity. An ice pack on your jaw over the sore area may help to reduce pain. You may use acetaminophen (Tylenol) or ibuprofen (Motrin, Advil) to control pain, unless another pain medicine was prescribed. [ NOTE: If you have liver disease or ever had a stomach ulcer, talk with your doctor before using these medicines.] If you have signs of an infection, an antibiotic will be given. Take it as directed. Follow-Up with your dentist as directed. Although your pain may go away with the treatment given, only a dentist can fully evaluate and treat this problem to prevent further tooth damage. Get Prompt Medical Attention if any of the following occur: Redness or swelling of the face Pain worsens or spreads to the neck Fever over 100.5 F (38C) Unusual drowsiness; headache or stiff neck; weakness or fainting Pus drains from the tooth or gum Difficulty swallowing or breathing Dental Pain A crack or cavity in the tooth, which exposes the sensitive inner area of the tooth can cause tooth pain. An infection in the gum or the root of the tooth can cause pain and swelling. The pain is often made worse by drinking hot or cold fluids, or biting on hard foods. Pain may spread from the tooth to the ear or jaw on the same side. Home Care: Avoid hot and cold foods and liquids since your tooth may be sensitive to temperature changes. If your tooth is chipped or cracked, or if there is a large open cavity, apply OIL OF CLOVES (available rowj-iug-vxfkpzx in drug stores) directly to the tooth to reduce pain. Some pharmacies carry an ejtf-alh-gtaqjhq "toothache kit." This contains a paste, which can be applied over the exposed tooth to decrease sensitivity. A cold pack on your jaw over the sore area may help reduce pain. You may use acetaminophen (Tylenol) or ibuprofen (Motrin, Advil) to control pain, unless another medicine was prescribed. [ NOTE: If you have chronic liver or kidney disease or ever had a stomach ulcer or GI bleeding, talk with your doctor before using these medicines.] If you have signs of an infection, an antibiotic will be given. Take it as directed. Follow-Up as directed with a dentist. Your pain may go away with the treatment given. However, only a dentist can fully evaluate and treat the cause and prevent the pain from coming back again. TOOTHACHE IS A SIGN OF DISEASE IN YOUR TOOTH AND SHOULD BE EXAMINED AND TREATED BY A DENTIST. Get Prompt Medical Attention if any of the following occur: Your face becomes swollen or red Pain worsens or spreads to the neck Fever over 100.4 F (38.0 C) Unusual drowsiness; headache or stiff neck; weakness or fainting Pus drains from the tooth Difficulty swallowing or breathing Amoxicillin Trihydrate, Clavulanate Potassium Oral tablet What is this medicine? AMOXICILLIN; CLAVULANIC ACID (a mox i JEFF in; CHRISTEL oropeza ic id) is a penicillin antibiotic. It is used to treat certain kinds of bacterial infections. It will not work for colds, flu, or other viral infections. How should I use this medicine? Take this medicine by mouth with a full glass of water. Follow the directions on the prescription label. Take at the start of a meal. Do not crush or chew. If the tablet has a score line, you may cut it in half at the score line for easier swallowing. Take your medicine at regular intervals. Do not take your medicine more often than directed. Take all of your medicine as directed even if you think you are better. Do not skip doses or stop your medicine early. Talk to your green chain off bearer regarding the use of this medicine in children. Special care may be needed. What side effects may I notice from receiving this medicine? Side effects that you should report to your doctor or health home care physical therapist as soon as possible: allergic reactions like skin rash, itching or hives, swelling of the face, lips, or tongue breathing problems dark urine fever or chills, sore throat redness, blistering, peeling or loosening of the skin, including inside the mouth seizures trouble passing urine or change in the amount of urine unusual bleeding, bruising unusually weak or tired white patches or sores in the mouth or throat Side effects that usually do not require medical attention (report to your doctor or health home care physical therapist if they continue or are bothersome): diarrhea dizziness headache nausea, vomiting stomach upset vaginal or anal irritation What may interact with this medicine? allopurinol anticoagulants control pills methotrexate probenecid What if I miss a dose? If you miss a dose, take it as soon as you can. If it is almost time for your next dose, take only that dose. Do not take double or extra doses. Where should I keep my medicine? Keep out of the reach of children. Store at room temperature below 25 degrees C (77 degrees F). Keep container tightly closed. Throw away any unused medicine after the expiration date. What should I tell my health care provider before I take this medicine? They need to know if you have any of these conditions: bowel disease, like colitis kidney disease liver disease mononucleosis an unusual or allergic reaction to amoxicillin, penicillin, cephalosporin, other antibiotics, clavulanic acid, other medicines, foods, dyes, or preservatives or trying to get breast-feeding What should I watch for while using this medicine? Tell your doctor or health home care physical therapist if your symptoms do not improve. Do not treat diarrhea with over the counter products. Contact your doctor if you have diarrhea that lasts more than 2 days or if it is severe and watery. If you have diabetes, you may get a false-positive result for sugar in your urine. Check with your doctor or health home care physical therapist. control pills may not work properly while you are taking this medicine. Talk to your doctor about using an extra method of control. Tramadol Hydrochloride Oral tablet What is this medicine? TRAMADOL (TRA ma dole) is a pain reliever. It is used to treat moderate to severe pain in adults. How should I use this medicine? Take this medicine by mouth with a full glass of water. Follow the directions on the prescription label. If the medicine upsets your stomach, take it with food or milk. Do not take more medicine than you are told to take. Talk to your green chain off bearer regarding the use of this medicine in children. Special care may be needed. What side effects may I notice from receiving this medicine? Side effects that you should report to your doctor or health home care physical therapist as soon as possible: allergic reactions like skin rash, itching or hives, swelling of the face, lips, or tongue breathing difficulties, wheezing confusion itching light headedness or fainting spells redness, blistering, peeling or loosening of the skin, including inside the mouth seizures Side effects that usually do not require medical attention (report to your doctor or health home care physical therapist if they continue or are bothersome): constipation dizziness drowsiness headache nausea, vomiting What may interact with this medicine? Do not take this medicine with any of the following medications: MAOIs like Carbex, Eldepryl, Marplan, Nardil, and Parnate This medicine may also interact with the following medications: alcohol or medicines that contain alcohol antihistamines benzodiazepines bupropion carbamazepine or oxcarbazepine clozapine cyclobenzaprine digoxin furazolidone linezolid medicines for depression, anxiety, or psychotic disturbances medicines for migraine headache like almotriptan, eletriptan, frovatriptan, naratriptan, rizatriptan, sumatriptan, zolmitriptan medicines for pain like pentazocine, buprenorphine, butorphanol, meperidine, nalbuphine, and propoxyphene medicines for sleep muscle relaxants naltrexone phenobarbital phenothiazines like perphenazine, thioridazine, chlorpromazine, mesoridazine, fluphenazine, prochlorperazine, promazine, and trifluoperazine procarbazine warfarin What if I miss a dose? If you miss a dose, take it as soon as you can. If it is almost time for your next dose, take only that dose. Do not take double or extra doses. Where should I keep my medicine? Keep out of the reach of children. Store at room temperature between 15 and 30 degrees C (59 and 86 degrees F). Keep container tightly closed. Throw away any unused medicine after the expiration date. What should I tell my health care provider before I take this medicine? They need to know if you have any of these conditions: brain tumor depression drug abuse or addiction head injury if you frequently drink alcohol containing drinks kidney disease or trouble passing urine liver disease lung disease, asthma, or breathing problems seizures or epilepsy suicidal thoughts, plans, or attempt; a previous suicide attempt by you or a family member an unusual or allergic reaction to tramadol, codeine, other medicines, foods, dyes, or preservatives or trying to get breast-feeding What should I watch for while using this medicine? Tell your doctor or health home care physical therapist if your pain does not go away, if it gets worse, or if you have new or a different type of pain. You may develop tolerance to the medicine. Tolerance means that you will need a higher dose of the medicine for pain relief. Tolerance is normal and is expected if you take this medicine for a long time. Do not suddenly stop taking your medicine because you may develop a severe reaction. Your body becomes used to the medicine. This does NOT mean you are addicted. Addiction is a behavior related to getting and using a drug for a non-medical reason. If you have pain, you have a medical reason to take pain medicine. Your doctor will tell you how much medicine to take. If your doctor wants you to stop the medicine, the dose will be slowly lowered over time to avoid any side effects. You may get drowsy or dizzy. Do not drive, use machinery, or do anything that needs mental alertness until you know how this medicine affects you. Do not stand or sit up quickly, especially if you are an older patient. This reduces the risk of dizzy or fainting spells. Alcohol can increase or decrease the effects of this medicine. Avoid alcoholic drinks. You may have constipation. Try to have a bowel movement at least every 2 to 3 days. If you do not have a bowel movement for 3 days, call your doctor or health home care physical therapist. Your mouth may get dry. Chewing sugarless gum or sucking hard candy, and drinking plenty of water may help. Contact your doctor if the problem does not go away or is severe. You have been given the following additional information: Dental Cavity Dental Pain Amoxicillin Trihydrate, Clavulanate Potassium Oral tablet Tramadol Hydrochloride Oral tablet No driving or operating machinery while taking medication. (Electronically signed by Joseph Jimenes MD 12/16/2016 9:12)
--- NOTE | 2016-12-16 09:19 | ED MED RECONCILIATION SUMMARY ---
Patient: ANNETTA PLASENCIA Medication Reconciliation Report [facility] VisitID: [id number] [address] [place] [address] 35y, F Registration Date/Time: 12/16/2016 Weight: 95.2 kg Height/Length: 64 in. BMI: 36.1 ALLERGIES: Eggs or Egg-derived Products, Influenza Vaccines, NSAIDs The patient's Home Medications are listed below: CONTINUE TAKING THE FOLLOWING MEDICATIONS: Albuterol Sulfate Inhalation Cyclobenzaprine HCl Oral, unknown dose. Gabapentin Oral, unknown dose Insulin Pump Paxil Oral Sulcrafate The source(s) of the original Home Medication information: patient The following Medications were given to the patient in the Emergency Department: None. The following Medications were prescribed to the patient: Augmentin 875 mg: take 1 tablet orally every 12 hours for 7 days. Dispense fourteen (14). No refills. Substitution is permissible. -- Joseph Jimenes MD Ultram 50 mg: take 1-2 orally every 6 hours as needed for pain. Dispense ten (10). No refills. Substitution is permissible. -- Joseph Jimenes MD
--- NOTE | 2016-12-16 09:19 | ED MED RECONCILIATION SUMMARY ---
Patient: ANNETTA PLASENCIA Medication Reconciliation Report [facility] VisitID: [id number] [address] [place] [address] 35y, F Registration Date/Time: 12/16/2016 Weight: 95.2 kg Height/Length: 64 in. BMI: 36.1 ALLERGIES: Eggs or Egg-derived Products, Influenza Vaccines, NSAIDs The patient's Home Medications are listed below: CONTINUE TAKING THE FOLLOWING MEDICATIONS: Albuterol Sulfate Inhalation Cyclobenzaprine HCl Oral, unknown dose. Gabapentin Oral, unknown dose Insulin Pump Paxil Oral Sulcrafate The source(s) of the original Home Medication information: patient The following Medications were given to the patient in the Emergency Department: None. The following Medications were prescribed to the patient: Augmentin 875 mg: take 1 tablet orally every 12 hours for 7 days. Dispense fourteen (14). No refills. Substitution is permissible. -- Joseph Jimenes MD Ultram 50 mg: take 1-2 orally every 6 hours as needed for pain. Dispense ten (10). No refills. Substitution is permissible. -- Joseph Jimenes MD
--- NOTE | 2016-12-16 09:19 | ED DISCHARGE INSTRUCTIONS ---
Patient: ANNETTA PLASENCIA General Instructions [facility] VisitID: [id number] [place] [address] 35y, F Registration Date/Time: 12/16/2016 Dental pain. Dental caries. INSTRUCTIONS No driving or operating machinery while taking medication. Drink plenty of fluids. Warnings: Further evaluation is necessary. GENERAL WARNINGS: Return or contact your physician immediately if your condition worsens or changes unexpectedly, if not improving as expected, or if other problems arise. Your Current Medications: CONTINUE TAKING THE FOLLOWING MEDICATIONS: Albuterol Sulfate Inhalation. Cyclobenzaprine HCl Oral : unknown dose. Gabapentin Oral : unknown dose. Insulin Pump*. Paxil Oral. Sulcrafate*. Prescription Medications: Augmentin 875 mg: take 1 tablet orally every 12 hours for 7 days. Dispense fourteen (14). No refills. Substitution is permissible. Ultram 50 mg: take 1-2 orally every 6 hours as needed for pain. Dispense ten (10). No refills. Substitution is permissible. Follow-up: Follow up with a dentist. Call for the next available appointment. Understanding of the discharge instructions verbalized by patient. ADDITIONAL INFORMATION Dental Cavity A dental cavity is a pit or crater in the enamel surface of the tooth. This exposes the sensitive inner layer of the tooth and causes pain. If untreated, the cavity will get bigger and may cause an infection or abscess in the root of the tooth. An infection in the tooth is a much more serious problem and may require a root canal or removal of the entire tooth. The tooth pain may be made worse by drinking hot or cold fluids. It may spread from the tooth to the ear or jaw on the same side. Home Care: Avoid hot and cold foods, and liquids since your tooth may be sensitive to temperature changes. If your tooth is chipped or cracked, or if there is a large open cavity, apply OIL OF CLOVES (available yjgk-joh-ppvenvu in drug stores) directly to the tooth to reduce pain. Some pharmacies carry an dchs-qum-slwsvti "toothache kit." This contains oil of cloves and a paste, which can be applied over the exposed tooth to decrease sensitivity. An ice pack on your jaw over the sore area may help to reduce pain. You may use acetaminophen (Tylenol) or ibuprofen (Motrin, Advil) to control pain, unless another pain medicine was prescribed. [ NOTE: If you have liver disease or ever had a stomach ulcer, talk with your doctor before using these medicines.] If you have signs of an infection, an antibiotic will be given. Take it as directed. Follow-Up with your dentist as directed. Although your pain may go away with the treatment given, only a dentist can fully evaluate and treat this problem to prevent further tooth damage. Get Prompt Medical Attention if any of the following occur: Redness or swelling of the face Pain worsens or spreads to the neck Fever over 100.5 F (38C) Unusual drowsiness; headache or stiff neck; weakness or fainting Pus drains from the tooth or gum Difficulty swallowing or breathing Dental Pain A crack or cavity in the tooth, which exposes the sensitive inner area of the tooth can cause tooth pain. An infection in the gum or the root of the tooth can cause pain and swelling. The pain is often made worse by drinking hot or cold fluids, or biting on hard foods. Pain may spread from the tooth to the ear or jaw on the same side. Home Care: Avoid hot and cold foods and liquids since your tooth may be sensitive to temperature changes. If your tooth is chipped or cracked, or if there is a large open cavity, apply OIL OF CLOVES (available enkp-lnp-bqjezmn in drug stores) directly to the tooth to reduce pain. Some pharmacies carry an nzon-wqe-qjcgiqa "toothache kit." This contains a paste, which can be applied over the exposed tooth to decrease sensitivity. A cold pack on your jaw over the sore area may help reduce pain. You may use acetaminophen (Tylenol) or ibuprofen (Motrin, Advil) to control pain, unless another medicine was prescribed. [ NOTE: If you have chronic liver or kidney disease or ever had a stomach ulcer or GI bleeding, talk with your doctor before using these medicines.] If you have signs of an infection, an antibiotic will be given. Take it as directed. Follow-Up as directed with a dentist. Your pain may go away with the treatment given. However, only a dentist can fully evaluate and treat the cause and prevent the pain from coming back again. TOOTHACHE IS A SIGN OF DISEASE IN YOUR TOOTH AND SHOULD BE EXAMINED AND TREATED BY A DENTIST. Get Prompt Medical Attention if any of the following occur: Your face becomes swollen or red Pain worsens or spreads to the neck Fever over 100.4 F (38.0 C) Unusual drowsiness; headache or stiff neck; weakness or fainting Pus drains from the tooth Difficulty swallowing or breathing Amoxicillin Trihydrate, Clavulanate Potassium Oral tablet What is this medicine? AMOXICILLIN; CLAVULANIC ACID (a mox i JEFF in; CHRISTEL oropeza ic id) is a penicillin antibiotic. It is used to treat certain kinds of bacterial infections. It will not work for colds, flu, or other viral infections. How should I use this medicine? Take this medicine by mouth with a full glass of water. Follow the directions on the prescription label. Take at the start of a meal. Do not crush or chew. If the tablet has a score line, you may cut it in half at the score line for easier swallowing. Take your medicine at regular intervals. Do not take your medicine more often than directed. Take all of your medicine as directed even if you think you are better. Do not skip doses or stop your medicine early. Talk to your industrial psychology teacher regarding the use of this medicine in children. Special care may be needed. What side effects may I notice from receiving this medicine? Side effects that you should report to your doctor or health health care administrator as soon as possible: allergic reactions like skin rash, itching or hives, swelling of the face, lips, or tongue breathing problems dark urine fever or chills, sore throat redness, blistering, peeling or loosening of the skin, including inside the mouth seizures trouble passing urine or change in the amount of urine unusual bleeding, bruising unusually weak or tired white patches or sores in the mouth or throat Side effects that usually do not require medical attention (report to your doctor or health health care administrator if they continue or are bothersome): diarrhea dizziness headache nausea, vomiting stomach upset vaginal or anal irritation What may interact with this medicine? allopurinol anticoagulants control pills methotrexate probenecid What if I miss a dose? If you miss a dose, take it as soon as you can. If it is almost time for your next dose, take only that dose. Do not take double or extra doses. Where should I keep my medicine? Keep out of the reach of children. Store at room temperature below 25 degrees C (77 degrees F). Keep container tightly closed. Throw away any unused medicine after the expiration date. What should I tell my health care provider before I take this medicine? They need to know if you have any of these conditions: bowel disease, like colitis kidney disease liver disease mononucleosis an unusual or allergic reaction to amoxicillin, penicillin, cephalosporin, other antibiotics, clavulanic acid, other medicines, foods, dyes, or preservatives or trying to get breast-feeding What should I watch for while using this medicine? Tell your doctor or health health care administrator if your symptoms do not improve. Do not treat diarrhea with over the counter products. Contact your doctor if you have diarrhea that lasts more than 2 days or if it is severe and watery. If you have diabetes, you may get a false-positive result for sugar in your urine. Check with your doctor or health health care administrator. control pills may not work properly while you are taking this medicine. Talk to your doctor about using an extra method of control. Tramadol Hydrochloride Oral tablet What is this medicine? TRAMADOL (TRA ma dole) is a pain reliever. It is used to treat moderate to severe pain in adults. How should I use this medicine? Take this medicine by mouth with a full glass of water. Follow the directions on the prescription label. If the medicine upsets your stomach, take it with food or milk. Do not take more medicine than you are told to take. Talk to your industrial psychology teacher regarding the use of this medicine in children. Special care may be needed. What side effects may I notice from receiving this medicine? Side effects that you should report to your doctor or health health care administrator as soon as possible: allergic reactions like skin rash, itching or hives, swelling of the face, lips, or tongue breathing difficulties, wheezing confusion itching light headedness or fainting spells redness, blistering, peeling or loosening of the skin, including inside the mouth seizures Side effects that usually do not require medical attention (report to your doctor or health health care administrator if they continue or are bothersome): constipation dizziness drowsiness headache nausea, vomiting What may interact with this medicine? Do not take this medicine with any of the following medications: MAOIs like Carbex, Eldepryl, Marplan, Nardil, and Parnate This medicine may also interact with the following medications: alcohol or medicines that contain alcohol antihistamines benzodiazepines bupropion carbamazepine or oxcarbazepine clozapine cyclobenzaprine digoxin furazolidone linezolid medicines for depression, anxiety, or psychotic disturbances medicines for migraine headache like almotriptan, eletriptan, frovatriptan, naratriptan, rizatriptan, sumatriptan, zolmitriptan medicines for pain like pentazocine, buprenorphine, butorphanol, meperidine, nalbuphine, and propoxyphene medicines for sleep muscle relaxants naltrexone phenobarbital phenothiazines like perphenazine, thioridazine, chlorpromazine, mesoridazine, fluphenazine, prochlorperazine, promazine, and trifluoperazine procarbazine warfarin What if I miss a dose? If you miss a dose, take it as soon as you can. If it is almost time for your next dose, take only that dose. Do not take double or extra doses. Where should I keep my medicine? Keep out of the reach of children. Store at room temperature between 15 and 30 degrees C (59 and 86 degrees F). Keep container tightly closed. Throw away any unused medicine after the expiration date. What should I tell my health care provider before I take this medicine? They need to know if you have any of these conditions: brain tumor depression drug abuse or addiction head injury if you frequently drink alcohol containing drinks kidney disease or trouble passing urine liver disease lung disease, asthma, or breathing problems seizures or epilepsy suicidal thoughts, plans, or attempt; a previous suicide attempt by you or a family member an unusual or allergic reaction to tramadol, codeine, other medicines, foods, dyes, or preservatives or trying to get breast-feeding What should I watch for while using this medicine? Tell your doctor or health health care administrator if your pain does not go away, if it gets worse, or if you have new or a different type of pain. You may develop tolerance to the medicine. Tolerance means that you will need a higher dose of the medicine for pain relief. Tolerance is normal and is expected if you take this medicine for a long time. Do not suddenly stop taking your medicine because you may develop a severe reaction. Your body becomes used to the medicine. This does NOT mean you are addicted. Addiction is a behavior related to getting and using a drug for a non-medical reason. If you have pain, you have a medical reason to take pain medicine. Your doctor will tell you how much medicine to take. If your doctor wants you to stop the medicine, the dose will be slowly lowered over time to avoid any side effects. You may get drowsy or dizzy. Do not drive, use machinery, or do anything that needs mental alertness until you know how this medicine affects you. Do not stand or sit up quickly, especially if you are an older patient. This reduces the risk of dizzy or fainting spells. Alcohol can increase or decrease the effects of this medicine. Avoid alcoholic drinks. You may have constipation. Try to have a bowel movement at least every 2 to 3 days. If you do not have a bowel movement for 3 days, call your doctor or health health care administrator. Your mouth may get dry. Chewing sugarless gum or sucking hard candy, and drinking plenty of water may help. Contact your doctor if the problem does not go away or is severe. You have been given the following additional information: Dental Cavity Dental Pain Amoxicillin Trihydrate, Clavulanate Potassium Oral tablet Tramadol Hydrochloride Oral tablet No driving or operating machinery while taking medication. (Electronically signed by Joseph Jimenes MD 12/16/2016 9:12)
--- NOTE | 2016-12-16 09:19 | ED MAR SUMMARY ---
..... Medication Administration Record [facility] [address] [place], [place] [id number] Patient: ANNETTA PLASENCIA Visit ID: [id number] 35y, F Weight: 95.2 kg Height/Length: 64 in BMI: 36.1 ALLERGIES: Eggs or Egg-derived Products, NSAIDs, Influenza Vaccines
== END 2016-12-16 09:13 | disposition home or self-care (01) ==
LOC: ED SRH 08:13
DX: K08.89 Other specified disorders of teeth and supporting structures (principal); K02.9 Dental caries, unspecified; E11.40 Type 2 diabetes mellitus with diabetic neuropathy, unspecified; Z88.7 Allergy status to serum and vaccine; Z91.012 Allergy to eggs; Z79.4 Long term (current) use of insulin; Z79.899 Other long term (current) drug therapy

== ENCOUNTER 2016-12-26 09:04 | Outpatient (CLI) | payer OTHER | END 2016-12-26 23:00 | LOC: LAB SRH 09:04 | DX: D72.819 Decreased white blood cell count, unspecified (principal); K25.9 Gastric ulcer, unspecified as acute or chronic, without hemorrhage or perforation; E10.9 Type 1 diabetes mellitus without complications | CPT/HCPCS: 90074; 90100; 95059 ==